=== PATIENT | female | born 1980 | race Caucasian/White ===

== ENCOUNTER → 2016-07-25 | Outpatient (CLI) | payer BC ==
--- NOTE | 2016-07-25 10:22 | MM ---
Reason for exam: clinical finding. Last mammogram was performed 5 years and 2 months ago. History: Took hormonal contraceptives for 6 months. Physical Findings: Nurse Summary: 0.5-1.5cm nodule in the left breast at 1, 5, 8 and 10 o'clock (nurse kp). MG 3D Diag Mammo W/Cad BO Bilateral CC and MLO view(s) were taken. Prior study comparison: June 07, 2011, CAD bilateral diagnostic mammogram. There are scattered fibroglandular densities. There is no discrete abnormality. These results were verbally communicated with the patient and result sheet given to the patient on 07/25/16. ASSESSMENT: Incomplete: need additional imaging evaluation, BI-RAD 0 RECOMMENDATION: Ultrasound of the left breast. (palpable by nurse)
--- NOTE | 2016-07-25 10:24 | USB ---
Reason for exam: additional evaluation requested from abnormal screening. History: Took hormonal contraceptives for 6 months. US Breast LT Left breast ultrasound including all four quadrants, the retroareolar region and axilla demonstrates no cystic or solid lesion seen. Benign axillary lymph axillary lymph node. These results were verbally communicated with the patient and result sheet given to the patient on 07/25/16. ASSESSMENT: Negative, BI-RAD 1 RECOMMENDATION: Routine screening mammogram of both breasts in 1 year. Manage on a clinical basis with regard to left palpable abnormality.
== END | disposition home or self-care (01) ==
LOC: RADMAMWWP 08:12
PROVIDERS: ATTEND Family Medicine
DX: N63 Unspecified lump in breast (principal); R92.8 Other abnormal and inconclusive findings on diagnostic imaging of breast
CPT/HCPCS: 76641; G0204; G0279

== ENCOUNTER → 2019-12-18 | Outpatient (CLI) | payer BC ==
--- NOTE | 2019-12-23 10:41 | MM ---
Reason for exam: clinical finding. Last mammogram was performed 3 years and 5 months ago. History: Took hormonal contraceptives for 6 months. Indicated problem(s): lump or thickening in the left breast. Physical Findings: Nurse Summary: 1cm nodule in the left breast at 1 o'clock (nurse mj). MG 3D Diag Mammo W/Cad BO Bilateral CC and MLO view(s) were taken. Spot compression CC, spot compression MLO, and ML view(s) were taken of the left breast. Prior study comparison: July 25, 2016, bilateral MG 3d diag mammo w/cad BO. There are scattered fibroglandular densities. There is no discrete abnormality persists on additional views of left breast. These results were verbally communicated with the patient and result sheet given to the patient on 12/18/19. ASSESSMENT: Incomplete: need additional imaging evaluation, BI-RAD 0 RECOMMENDATION: Ultrasound of the left breast. (palpable by patient)
--- NOTE | 2019-12-23 10:44 | USB ---
Reason for exam: additional evaluation requested from abnormal screening. History: Took hormonal contraceptives for 6 months. US Breast Limited LT Left limited breast ultrasound including focal area of concern, retroareolar and axilla demonstrates a 0.8 x 0.4 x 0.3cm oval lymph node at 2 o'clock BB versus two adjacent 4mm oval lymph nodes. These results were verbally communicated with the patient and result sheet given to the patient on 12/18/19. ASSESSMENT: Benign, BI-RAD 2 RECOMMENDATION: Routine screening mammogram of both breasts in 1 year.
== END | disposition home or self-care (01) ==
LOC: RADMAMWWP 14:45
PROVIDERS: ATTEND Obstetrics & Gynecology
DX: N63.20 Unspecified lump in the left breast, unspecified quadrant (principal)
CPT/HCPCS: 77062; 77066

== ENCOUNTER → 2021-03-31 | Outpatient (CLI) | payer BC ==
--- NOTE | 2021-04-04 10:45 | MM ---
Reason for exam: screening (asymptomatic). Last mammogram was performed 1 year and 3 months ago. History: Took hormonal contraceptives for 6 months. Physical Findings: A clinical breast exam by your physician is recommended on an annual basis and results should be correlated with mammographic findings. MG 3D Screening Mammo W/Cad Bilateral CC and MLO view(s) were taken. Prior study comparison: December 18, 2019, bilateral MG 3d diag mammo w/cad BO. July 25, 2016, bilateral MG 3d diag mammo w/cad BO. There are scattered fibroglandular densities. There is no discrete abnormality. ASSESSMENT: Negative, BI-RAD 1 RECOMMENDATION: Routine screening mammogram of both breasts in 1 year.
== END ==
LOC: RADMAMWWP 16:17
PROVIDERS: ATTEND Obstetrics & Gynecology
DX: Z12.31 Encounter for screening mammogram for malignant neoplasm of breast (principal)
CPT/HCPCS: 77063; 77067

== ENCOUNTER → 2022-04-11 | Outpatient (CLI) | payer BC ==
--- NOTE | 2022-04-12 11:11 | MM ---
Reason for Exam: Screening (asymptomatic). Last screening mammogram was performed 12 month(s) ago. Patient History: Menarche at age 10. First Full-Term at age 23. Hormonal Contraceptives for 6 months. Last menstrual period: 03/16/2022 Risk Values: Marilee 5 year model risk: 0.8%. NCI Lifetime model risk: 10.8%. Prior Study Comparison: 07/25/2016 Bilateral Diagnostic Mammogram, [facility]. 12/18/2019 Bilateral Diagnostic Mammogram, [facility]. 03/31/2021 Bilateral Screening Mammogram, [facility]. Tissue Density: There are scattered fibroglandular densities. Findings: Analyzed By CAD. There is no suspicious group of microcalcifications or new suspicious mass in either breast. Overall Assessment: Negative, BI-RAD 1 Management: Screening Mammogram of both breasts in 1 year. 1. Patient should continue monthly self breast exams. 2. A clinical breast exam by your physician is recommended on an annual basis. 3. This exam should not preclude additional follow-up of suspicious palpable abnormalities. Electronically signed and approved by: Liza Denney M.D. Radiologist
== END | disposition home or self-care (01) ==
LOC: RADMAMWWP 14:48
PROVIDERS: ATTEND Family Medicine
DX: Z12.31 Encounter for screening mammogram for malignant neoplasm of breast (principal)
CPT/HCPCS: 77063; 77067

== ENCOUNTER → 2023-05-17 | Outpatient (CLI) | payer BC ==
--- NOTE | 2023-05-18 14:27 | MM ---
Reason for Exam: Screening (asymptomatic). Last mammogram was performed 1 year(s) and 2 month(s) ago. Patient History: Menarche at age 10. First Full-Term at age 23. Premenopausal. Hormonal Contraceptives for 6 months. Last menstrual period: 05/17/2022 Risk Values: Marilee 5 year model risk: 0.9%. NCI Lifetime model risk: 10.7%. Prior Study Comparison: 12/18/2019 Bilateral Diagnostic Mammogram, [facility]. 03/31/2021 Bilateral Screening Mammogram, [facility]. 04/11/2022 Bilateral MG 3D screening mammo w/cad, [facility]. Tissue Density: The breast tissue is heterogeneously dense. This may lower the sensitivity of mammography. Findings: Analyzed By CAD. There is no suspicious group of microcalcifications or new suspicious mass. Overall Assessment: Negative, BI-RAD 1 Management: Screening Mammogram of both breasts in [address] [facility] will attempt to contact patient to return for supplemental views and ultrasound if indicated. Patient should continue monthly self-breast exams. A clinical breast exam by your physician is recommended on an annual basis. This exam should not preclude additional follow-up of suspicious palpable abnormalities. Note on Marilee scores and lifetime risk: 1. A Marilee score greater than 3% is considered moderate risk. If this is the case, consider specialist referral to assess eligibility for a risk reducing agent. 2. If overall lifetime risk for the development of breast cancer is 20% or higher, the patient may qualify for future screening with alternating mammogram and breast MRI. Electronically signed and approved by: Donaldo Evangelista DO
== END | disposition home or self-care (01) ==
LOC: RADMAMWWP 16:34
PROVIDERS: ATTEND Obstetrics & Gynecology Obstetrics
DX: Z12.31 Encounter for screening mammogram for malignant neoplasm of breast (principal)
CPT/HCPCS: 77063; 77067

== ENCOUNTER → 2023-08-24 | Outpatient (CLI) | payer BC ==
--- NOTE | 2023-08-25 15:31 | CT ---
EXAMINATION TYPE: CT abdomen pelvis wo con CT DLP: 356.4 mGycm, Automated exposure control for dose reduction was used. DATE OF EXAM: 08/24/2023 6:49 PM COMPARISON: None. CLINICAL INDICATION:Female, 43 years old with history of R10.9 ABD PAIN Z87.442 PERSONAL HISTORY OF U RINARY; left flank pain TECHNIQUE: Axial CT of the abdomen and pelvis performed without IV contrast, oral contrast only. Sag ittal and coronal reformats were created on a separate workstation. Contrast used: mL of , (none if empty) Oral contrast used: with Oral Contrast (none if empty) FINDINGS: LOWER CHEST: Lungs are clear. Heart size normal. No pericardial effusion. ABDOMEN LIVER: Unremarkable GALLBLADDER AND BILE DUCTS: The gallbladder is surgically absent. Biliary tree does not appear pathol ogically dilated. PANCREAS: Unremarkable. SPLEEN: Unremarkable. ADRENAL GLANDS: Mild thickening and small nodularity on the left, likely adenomatoid changes.. KIDNEYS AND URETERS: No evidence of renal calculi or contour deformity. Mildly prominent bilateral ex trarenal pelves without dilated ureters seen. Multiple calcifications within the pelvis appear to be phleboliths. PELVIS BLADDER: The bladder is incompletely distended but grossly unremarkable. REPRODUCTIVE: Not well evaluated by CT but the uterus appears bulky and somewhat lobulated, considera tions include fibroids. Ovaries are not identified with certainty. Consider ultrasound if pelvis is o f concern. ABDOMEN & PELVIS STOMACH AND BOWEL: Postoperative changes of the stomach likely from gastric sleeve. Some residual con trast in the duodenum, most of which has traversed to more distal small bowel. There is no evidence o f obstruction. Contrast is not yet within the colon. There is moderate stool throughout the colon wit hout focal acute abnormality seen. What seems to be the appendix does not appear dilated or inflamed . PERITONEUM/RETROPERITONEUM: No evidence of pneumoperitoneum or free fluid. VASCULATURE: Aorta and major branches are grossly unremarkable. No AAA. IVC is normal caliber. LYMPH NODES: No enlarged nodes by CT size criteria. SOFT TISSUE/ABDOMINAL WALL: Unremarkable MUSCULOSKELETAL: No acute osseous abnormalities. There are 5 nonrib-bearing lumbar type vertebral kristine dies, with L5 partially sacralized. Moderate degenerative disease L4-L5 with mild to moderate canal a nd neural foraminal stenoses. Small limbus vertebra L4. T10 and T11 vertebral bodies are partially fu sed, likely developmental. Mild degenerative disc disease T9-T10. Small sclerotic densities in the pe lvis and right hip likely bone islands. IMPRESSION: No evidence of urinary tract calculi or hydronephrosis. If hematuria persists, CT urogram may be of b enefit.
== END | disposition home or self-care (01) ==
LOC: RADCTMAIN 16:58
PROVIDERS: ATTEND Family Medicine
DX: R10.9 Unspecified abdominal pain (principal); Z87.442 Personal history of urinary calculi
CPT/HCPCS: 74176

== ENCOUNTER → 2023-11-14 | Day surgery (SDC) | payer BC ==
[2023-11-13 08:32] VITALS: BMI 31.1
[~2023-11-14] MED LIST: PROPOFOL 10 MG/ML 20 ML VIAL IV ONE
[2023-11-14 12:02] VITALS: RESP 16; TEMP 97.2
[2023-11-14] MEDS: LACTATED RINGERS 1,000 ML IV SCH (12:02)
[2023-11-14] MEDS: IV FLUID CONTINUATION 1,000 ML IV ONE (12:03)
[2023-11-14] MEDS: LIDOCAINE 1% (10MG/ML) FOR IV START INTRADERMA ONE (12:03)
--- NOTE | 2023-11-14 13:11 | P.PCN ---
Date of Procedure: 11/14/23 Procedure(s) Performed: BRIEF HISTORY: Patient is a 43-year-old pleasant white female scheduled for an elective colonoscopy as a part of screening for colon cancer PROCEDURE PERFORMED: Colonoscopy. PREOPERATIVE DIAGNOSIS: Screening for colon cancer. IV sedation per Anesthesia. PROCEDURE: After informed consent was obtained, the patient, was brought into the endoscopy unit. IV sedation was administered by Anesthesia under continuous monitoring. Digital rectal examination was normal. Initially the Olympus CF-160 flexible video colonoscope was then inserted in the rectum, gradually advanced into the cecum without any difficulty. Careful examination was performed as the scope was gradually being withdrawn. Ileocecal valve and the appendiceal orifice were visualized and appeared normal. Prep was excellent. Mucosa of the cecum, ascending colon, transverse colon, descending colon, sigmoid colon, and rectum appeared normal. Retroflexion was performed in the rectum and no lesions were seen. The patient tolerated the procedure well. IMPRESSION: Normal-appearing colon from rectum to cecum no evidence of colorectal neoplasia. RECOMMENDATIONS: Findings of this examination were discussed with the patient as well as her family. She was advised to have repeat screening colonoscopy in 10 years..
[2023-11-14 13:19] VITALS: PULSE 72
[2023-11-14 13:30] VITALS: BP 115/66
== END ==
LOC: ORWHC2ENDO 11:17
PROVIDERS: ATTEND Internal Medicine Gastroenterology
DX: Z12.11 Encounter for screening for malignant neoplasm of colon (principal); K21.9 Gastro-esophageal reflux disease without esophagitis; Z79.899 Other long term (current) drug therapy
CPT/HCPCS: 81025; 45378; J2704

== ENCOUNTER → 2024-07-08 | Outpatient (CLI) | payer OTHER ==
--- NOTE | 2024-07-09 08:15 | MM ---
Reason for Exam: Screening (asymptomatic). Last mammogram was performed 1 year(s) and 1 month(s) ago. Patient History: Menarche at age 10. First Full-Term at age 23. Premenopausal. Hormonal Contraceptives for 6 months. Risk Values: Marilee 5 year model risk: 0.9%. NCI Lifetime model risk: 10.5%. Prior Study Comparison: 03/31/2021 Bilateral Screening Mammogram, [facility]. 04/11/2022 Bilateral MG 3D screening mammo w/cad, [facility]. 05/17/2023 Bilateral MG 3D screening mammo w/cad, [facility]. Tissue Density: There are scattered areas of fibroglandular density. Findings: Analyzed By CAD. Right breast: There is no suspicious group of microcalcifications or new suspicious mass. Left breast: There is no suspicious group of microcalcifications or new suspicious mass. Overall Assessment: Negative, BI-RAD 1 Management: Screening Mammogram of both breasts in [address] [facility] will attempt to contact patient to return for supplemental views and ultrasound if indicated. Patient should continue monthly self-breast exams. A clinical breast exam by your physician is recommended on an annual basis. This exam should not preclude additional follow-up of suspicious palpable abnormalities. Note on Marilee scores and lifetime risk: 1. A Marilee score greater than 3% is considered moderate risk. If this is the case, consider specialist referral to assess eligibility for a risk reducing agent. 2. If overall lifetime risk for the development of breast cancer is 20% or higher, the patient may qualify for future screening with alternating mammogram and breast MRI. [facility], , 07/09/2024 8:13 AM. Electronically signed and approved by: Donaldo Evangelista DO
== END | disposition home or self-care (01) ==
LOC: RADMAMWWP 16:16
PROVIDERS: ATTEND Obstetrics & Gynecology Obstetrics
DX: Z12.31 Encounter for screening mammogram for malignant neoplasm of breast (principal); R92.323 Mammographic fibroglandular density, bilateral breasts; Z92.0 Personal history of contraception
CPT/HCPCS: 77063; 77067